=== PATIENT | male | born 1970 | race Caucasian/White ===

== ENCOUNTER 2019-07-24 11:29 | Outpatient (RCR) | payer SELFPAY | END 2019-07-24 12:00 | disposition home or self-care (01) | LOC: PT 11:29 | PROVIDERS: Visit Provider Orthopaedic Surgery | DX: S93.401A Sprain of unspecified ligament of right ankle, initial encounter (principal); S89.91XA Unspecified injury of right lower leg, initial encounter ==

== ENCOUNTER → 2019-09-03 10:19 | Outpatient (CLI) | payer SELFPAY ==
--- NOTE | 2019-09-03 10:29 | XR_ITS ---
PROCEDURE: XR ANKLE RT MIN 3V CLINICAL INDICATION: Right ankle sprain follow up Ankle pain COMPARISON: XR ANKLE RT MIN 3V from 07/23/2019 FINDINGS: No fracture, dislocation, lytic change, or blastic change evident. No significant degenerative change IMPRESSION: No acute findings. Dictated by: Kevin Joe MD 09/03/2019 17:32 Electronically signed by Kevin Joe MD in [place] 09/03/2019 17:32
== END ==
PROVIDERS: Visit Provider Orthopaedic Surgery
DX: S93.401A Sprain of unspecified ligament of right ankle, initial encounter (principal); S89.91XA Unspecified injury of right lower leg, initial encounter
CPT/HCPCS: 73610

== ENCOUNTER 2020-01-14 17:33 | Emergency (ER) | payer BC, SELFPAY ==
[2020-01-14 17:41] VITALS: BP 123/82; PULSE 75; RESP 18; TEMP 36.8; O2SAT 98; BMI 25.8
--- NOTE | 2020-01-14 17:44 | [facility].EDGENADL ---
ED Disposition Clinical Impression: Corneal foreign body Qualifiers: Encounter type: initial encounter Laterality: left Qualified Code(s): T15.02XA - Foreign body in cornea, left eye, initial encounter Disposition: Home, Self-Care Condition on Discharge: Good Instructions: DI for Corneal Foreign Body-Eye Additional Instructions: Use erythromycin ointment 4 times a day in your left eye for 2 days. Follow-up with Dr. Calvert at [facility] if not improved tomorrow. Dr. Nick Calvert [facility] [address] [place] [address] Referrals: PCP,No [Primary Care Provider] - - Critical Care Critical Care Time: No Attestation: On , the high probability of a clinically significant, sudden or life threatening deterioration of the following system(s) required my full and direct attention, intervention and personal management. The time I documented below is in addition to time spent performing reported procedures but includes the following listed in this critical care notation. Medical Decision Making - Fadi Inquiry Pt receiving controlled substance: No Vital Signs: 01/14/20 17:41 Temperature 98.3 F Temperature Source Oral Pulse Rate [Right Radial] 75 Respiratory Rate 18 Blood Pressure [Right Arm] 123/82 Blood Pressure Mean [Right Arm] 95 Blood Pressure Source [Right Arm] Automatic Cuff Blood Pressure Position [Right Arm] Sitting 02 Sat by Pulse Oximetry 98 Oxygen Delivery Method Room Air Orders (Tests/Meds): ED MEDICATIONS Discontinued Medications Generic Name Dose Route Start Last Admin Trade Name Freq PRN Reason Stop Dose Admin Erythromycin 1 gm 01/14/20 18:00 Erythromycin 1gm Opth Ointment OP 01/14/20 18:01 ONCE ONE Tetracaine HCl 0 ml 01/14/20 18:00 Tetracaine 0.5% Ophth Solution 15ml OP 01/14/20 18:01 ONCE ONE General Adult HPI - General Stated complaint: piece of metal in L eye Time Seen by Provider: 01/14/20 17:44 - History of Present Illness HPI narrative: The patient was grinding metal 2 days ago. He woke up the next day with a foreign body sensation in his left eye. Symptoms persistent since yesterday. Denies photophobia. No welding performed. - Related Data Home Medications Medication Instructions Recorded Confirmed No Known Home Medications 03/04/20 05/29/20 Allergies Allergy/AdvReac Type Severity Reaction Status Date / Time hydrocodone Allergy Verified 10/18/19 11:36 [facility] History - Hepatitis A Screen Attestation statement:: This patient has been screened for Hepatitis A risk factors. I have reviewed the patient's past medical history: Yes Medical History: Reports:: Chronic Obstructive Pulmonary Disease (COPD) Laterality Cases: Bilateral: Other - Social History Smoking Status: Current every day smoker Tobacco Type: cigarettes # Packs/Day (cigarettes): 1 Alcohol Intake: never Occupational Status: other Family Hx:: No significant family history ROS Obtained: Yes Systems reviewed as appropriate & no additional complaints - Eyes Eyes: Denies blind spots, Reports eye pain, Denies photophobia Physical Exam - General General appearance: alert, in no apparent distress - Expanded Eye Exam Eyelids: bilateral: normal inspection Pupils: Bilateral: regular, round Sclera/Conjunctival: left: injection Both Eyes Image: 1 - metallic FB - Respiratory Respiratory exam: Absent: respiratory distress - Cardiovascular Cardiovascular exam: Present: regular rate - Neurological Exam Neurological exam: Present: alert, oriented X3 - Psychiatric Psychiatric exam: Present: normal affect, normal mood Procedures - Miscellaneous Procedure Procedure Performed: FOREIGN BODY REMOVAL Performed by: JENN VEGA Type: Metallic corneal foreign body Location: Left eye Anesthesia: Tetracaine drops Patient
--- NOTE | 2020-01-14 18:14 | PC.NURSE ---
visual acuity 20/70 in [facility].
[2020-01-14 18:32] VITALS: BP 123/82; PULSE 75; RESP 14; TEMP 36.8; O2SAT 99
== END 2020-01-14 18:33 | disposition home or self-care (01) ==
PROVIDERS: Emergency Provider Emergency Medicine
DX: T15.02XA Foreign body in cornea, left eye, initial encounter (principal); W45.8XXA Other foreign body or object entering through skin, initial encounter; W29.8XXA Contact with other powered hand tools and household machinery, initial encounter; Y92.89 Other specified places as the place of occurrence of the external cause
CPT/HCPCS: 65220; 99281

== ENCOUNTER → 2021-06-02 16:37 | Outpatient (CLI) | payer OTHER, SELFPAY | PROVIDERS: Visit Provider Nurse Practitioner | DX: Z20.822 Contact with and (suspected) exposure to COVID-19 (principal) | CPT/HCPCS: C9803; U0003; U0005 ==